=== PATIENT | male | born 1975 | race Two or more races ===

== ENCOUNTER 2019-12-06 17:37 | Emergency (ER) | payer MEDICAID ==
[~2019-12-06] VITALS: Ht 170.2 cm; Wt 88.0 kg
[2019-12-06 17:40] VITALS: BP 126/90
[2019-12-06] MEDS ORDERED: ACETAMINOPHEN 325MG TABLET PO STA (18:41)
[2019-12-06] MEDS ORDERED: IBUPROFEN 600MG TABLET PO ONE (20:00)
== END 2019-12-06 21:42 | disposition home or self-care (01) ==
LOC: ER 17:37
DX: U07.1 COVID-19 (principal); R07.89 Other chest pain
CPT/HCPCS: 71045; 93005; 99283; C9803; U0003